=== PATIENT | male | born 1950 | race Caucasian/White ===

== ENCOUNTER 2016-11-07 11:02 | Emergency (ER) | payer BC ==
[~2016-11-07] VITALS: Ht 167.6 cm; Wt 72.1 kg
[2016-11-07 11:04] VITALS: Ht 167.6 cm; Wt 72.1 kg
[2016-11-07 11:44] LABS: ADD SCAN DIFF NO
[2016-11-07 11:47] LABS: BASOPHILS % 0.4 % (0.0-2.0); EOSINOPHILS % 0.2 % (0.0-7.0); HEMATOCRIT 38.4 % (42.0-52.0); HEMOGLOBIN 13.2 g/dl (14.0-18.0); LYMPHOCYTES # 1.4 10^3/ul (0.8-2.9); LYMPHOCYTES % 13.9 % (15.0-51.0); MEAN CORPUSCULAR HEMOGLOBIN 30.1 pg (29.0-33.0); MEAN CORPUSCULAR HGB CONC 34.4 g/dl (32.0-37.0); MEAN CORPUSCULAR VOLUME 87.7 fl (82.0-101.0); MEAN PLATELET VOLUME 10.5 fl (7.4-10.4); MONOCYTE # 0.6 10^3/ul (0.3-0.9); MONOCYTES % 5.6 % (0.0-11.0); NEUTROPHIL # 8.1 10^3/ul (1.6-7.5); NEUTROPHILS % 79.6 % (39.0-77.0); PLATELET COUNT 321 10^3/UL (140-415); RED BLOOD COUNT 4.38 10^6/ul (4.70-6.10); RED CELL DISTRIBUTION WIDTH 11.6 % (11.5-14.5); WHITE BLOOD COUNT 10.2 10^3/ul (4.8-10.8)
[2016-11-07 11:56] LABS: ALBUMIN 3.7 g/dl (3.3-4.9)
[2016-11-07 11:57] LABS: POTASSIUM 4.4 mmol/L (3.5-5.1)
[2016-11-07 11:59] LABS: ALBUMIN/GLOBULIN RATIO 0.74; BILIRUBIN,INDIRECT 0.8 mg/dl (0-1.1); BILIRUBIN,TOTAL 0.8 mg/dl (0.2-1.3); CREATININE 1.45 mg/dl (0.61-1.24); TOTAL PROTEIN 8.7 g/dl (6.1-8.1)
[2016-11-07 12:00] LABS: CALCIUM 9.4 mg/dl (8.4-10.2)
[2016-11-07 12:07] LABS: ADD UMIC NO; URINE BILIRUBIN (Dip) NEGATIVE (NEGATIVE); URINE BLOOD (Dip) NEGATIVE (NEGATIVE); URINE COLOR LT. YELLOW (YELLOW); URINE GLUCOSE (Dip) NEGATIVE (NEGATIVE); URINE KETONES (Dip) NEGATIVE (NEGATIVE); URINE LEUKOCYTE ESTERASE (Dip) NEGATIVE (NEGATIVE); URINE NITRITE (Dip) NEGATIVE (NEGATIVE); URINE TOTAL PROTEIN (Dip) NEGATIVE (NEGATIVE); URINE UROBILINOGEN (Dip) 0.2 E.U./dL (0.1-1.0)
--- NOTE | 2016-11-07 13:07 | RADRPT ---
PROCEDURE: CT Abdomen and Pelvis without contrast. CLINICAL INDICATION: Abdominal pain TECHNIQUE: CT scan of the abdomen and pelvis was performed on a multidetector high-resolution CT s canner without intravenous contrast. Coronal and sagittal reformatted images were obtained from the axial source images. Images were reviewed on a high-resolution PACS workstation. The total exam CTD I equals 13mGy and the total exam DLP equals 738mGy-cm. One or more of the following dose reduction techniques were used: Automated exposure control, Adjustment of the mA and/or kV according to patien t size, and/or use of iterative reconstruction technique. COMPARISON: None. FINDINGS: Evaluation of the solid organs is limited given the lack of intravenous contrast administration. The lung bases are clear. The liver, pancreas, spleen, and adrenals are grossly unremarkable. No focal pericholecystic inflammatory changes. Bilateral nonobstructing renal stones. There is also an obstructing 4 mm right mid ureteral stone w ith mild right hydronephrosis and hydroureter. No left renal hydronephrosis. Surgical clip along the right lower abdominal wall likely related to prior inguinal hernia surgery. Focal lipomatosis is seen in the bilateral inguinal canals. No bowel obstruction. Normal-caliber appendix. Enlarged prostate bulging into the base of the bladder. 8 mm anterolisthesis of L5-S1 due to bilate ral pars defects. There is associated severe bilateral foraminal stenosis at this level. IMPRESSION: There is an obstructing 4 mm right mid ureteral stone with mild right hydronephrosis and hydroureter . Bilateral nonobstructing renal stones. Enlarged prostate bulging into the base of the bladder. 8 mm anterolisthesis of L5-S1 due to bilateral pars defects. Surgical clip along the right lower abdominal wall likely related to prior inguinal hernia surgery. Focal lipomatosis is seen in the bilateral inguinal canals. RPTAT: AA .Lee Torrez MD, Date Time Electronically viewed and signed by .Lee Torrez MD, on 11/07/2016 13:07 .T/
[2016-11-07] MEDS ORDERED: IBUP-1542 PO (13:40)
--- NOTE | 2016-11-07 13:43 | ERD ---
ER Documentation Chief Complaint Date/Time DATE: 11/07/16 TIME: 13:41 Chief Complaint RT GROIN PAIN X 2 DAYS HPI 66-year-old male presents to the emergency department with his family complaining of a colicky, intermittent, spontaneous right-sided abdominal pain that he has had for the last 2 days. Pain radiates towards his groin. It is associated with no fevers, chills, vomiting. Patient reports no hematuria or dysuria. Patient describes the pain is mild to moderate and essentially the pain is gone upon my arrival. ROS All systems reviewed and are negative except as per history of present illness. Medications Home Meds Active Scripts Ibuprofen* (Motrin*) 600 Mg Tab, 600 MG PO Q8 for PAIN, #30 TAB Prov:LAZARO ALVARES 11/07/16 Allergies Allergies: Coded Allergies: No Known Allergy (Unverified , 11/07/16) PMhx/Soc History of Surgery: No Anesthesia Reaction: No Hx Neurological Disorder: No Hx Respiratory Disorders: No Hx Cardiac Disorders: No Hx Psychiatric Problems: No Hx Miscellaneous Medical Probl: Yes (DM) Hx Alcohol Use: No Hx Substance Use: No Hx Tobacco Use: No Smoking Status: Never smoker FmHx Noncontributory for chief complaint Physical Exam Vitals Vital Signs Date Time Temp Pulse Resp B/P Pulse Ox O2 Delivery O2 Flow Rate FiO2 11/07/16 11:04 98.1 90 18 160/72 97 Physical Exam GENERAL: The patient is well developed and appropriate for usual state of health in no apparent distress HEENT: Pupils equal, round, and reactive to light. EOMI. There is no scleral icterus. NECK: C-spine is soft and supple, there is no meningismus. There is no cervical lymphadenopathy. LUNGS: Clear to auscultation bilaterally. There are no rales, wheezes or rhonchi. HEART: Regular rate and rhythm, no murmurs, clicks, rubs or gallops. ABDOMEN: Soft, non-tender, non-distended. There are bowel sounds in all four quadrants. No rebound or guarding. No CVA tenderness EXTREMITIES: There is no peripheral cyanosis or edema. No focal swelling or erythema. NEURO: The patient moves all four extremities with 5/5 strength. Cranial nerves II - XII are intact. Normal gait. Alert and oriented SKIN: There is no apparent rash or petechiae. HEME/LYMPHATIC: There is no evidence of excessive bruising or lymphedema. PSYCHIATRIC: The patient does not appear anxious or depressed. Result Diagram: 11/07/16 1135 11/07/16 1135 Results 24 hrs Laboratory Tests Test 11/07/16 11:25 11/07/16 11:35 Urine Color LT. YELLOW Urine Clarity CLEAR Urine pH 6.5 Urine Specific [place] 1.015 Urine Ketones NEGATIVE Urine Nitrite NEGATIVE Urine Bilirubin NEGATIVE Urine Urobilinogen 0.2 E.U./dL Urine Leukocyte Esterase NEGATIVE Urine Hemoglobin NEGATIVE Urine Glucose NEGATIVE% Urine Total Protein NEGATIVE White Blood Count 10.210^3/ul Red Blood Count 4.3810^6/ul Hemoglobin 13.2g/dl Hematocrit 38.4% Mean Corpuscular Volume 87.7fl Mean Corpuscular Hemoglobin 30.1pg Mean Corpuscular Hemoglobin Concent 34.4g/dl Red Cell Distribution Width 11.6% Platelet Count 55301^3/UL Mean Platelet Volume 10.5fl Neutrophils % 79.6% Lymphocytes % 13.9% Monocytes % 5.6% Eosinophils % 0.2% Basophils % 0.4% Nucleated Red Blood Cells % 0.0/100WBC Neutrophils # 8.110^3/ul Lymphocytes # 1.410^3/ul Monocytes # 0.610^3/ul Eosinophils # 0.010^3/ul Basophils # 0.010^3/ul Nucleated Red Blood Cells # 0.010^3/ul Sodium Level 136mmol/L Potassium Level 4.4mmol/L Chloride Level 99mmol/L Carbon Dioxide Level 25mmol/L Anion Gap 16 Blood Urea Nitrogen 24mg/dl Creatinine 1.45mg/dl Glucose Level 195mg/dl Calcium Level 9.4mg/dl Total Bilirubin 0.8mg/dl Direct Bilirubin 0.00mg/dl Indirect Bilirubin 0.8mg/dl Aspartate Amino Transf (AST/SGOT) 20IU/L Alanine Aminotransferase (ALT/SGPT) 22IU/L Alkaline Phosphatase 115IU/L Total Protein 8.7g/dl Albumin 3.7g/dl Globulin 5.00g/dl Albumin/Globulin Ratio 0.74 Lipase 116U/L Procedures/MDM Patient was taken to a room, seen and evaluated. Comfort measures were initiated. Diagnostic tests were ordered and reviewed. RADIOLOGY: [reviewed with the radiologist] REEVALUATION: Patient's pain was well-controlled and he remained with a benign abdomen MEDICAL DECISION MAKING: Patient presents with abdominal pain of uncertain etiology. Differential diagnosis considered includes appendicitis, diverticulitis, cholecystitis and other intra-abdominal medical and surgical concerns. I have reviewed the patient's lab studies and imaging as well as multiple examinations of the abdomen. Patient's clinical findings are consistent with evidence of a kidney stone. At this time, he shows no evidence of high-risk obstruction, infection or other high-risk concerns. He appears to be clinically appropriate for outpatient care. Departure Diagnosis: Primary Impression: Kidney stone Condition: Stable Patient Instructions: Kidney Stone W/ Colic Additional Instructions: See your doctor for follow-up as discussed. Take a copy of your test results, if appropriate, to this follow-up visit. See your doctor or return here if your symptoms do not improve as expected. At any time, please return to the emergency department for any change or worsening in her symptoms. LAZARO ALVARES Nov 07, 2016 13:43
== END 2016-11-07 14:20 | disposition home or self-care (01) ==
LOC: FTE 11:02
DX: N20.0 Calculus of kidney (principal); E11.9 Type 2 diabetes mellitus without complications
CPT/HCPCS: 36415; 74176; 80053; 81003; 83690; 85025; Z7502